=== PATIENT | female | born 1950 | race Caucasian/White ===

== ENCOUNTER 2017-04-13 23:24 | Emergency (ER) | payer BC ==
[~2017-04-13 23:24] MED LIST: ASPIRIN81 M1 PO; CALCIUM + VITAM1 TAB PO; CRESTOR PO; EVISTA60 M1 PO; FLEXI JOINT TAB1 TA1 PO; LORTAB 5/500 TA1 TA1 PO
[2017-04-13] MEDS ORDERED: CRESTOR PO (23:39)
[2017-04-13] MEDS ORDERED: ESTRATEST H.S.1 TAB PO (23:39)
[2017-04-13] MEDS ORDERED: ASPIRIN81 M2 PO (23:39)
== END 2017-04-14 00:41 | disposition home or self-care (01) ==
LOC: SED 23:24
DX: S61.451A Open bite of right hand, initial encounter (principal); Z23 Encounter for immunization; E78.5 Hyperlipidemia, unspecified; Z88.0 Allergy status to penicillin; Z88.2 Allergy status to sulfonamides; Z88.8 Allergy status to other drugs, medicaments and biological substances; W55.01XA Bitten by cat, initial encounter; Y92.009 Unspecified place in unspecified non-institutional (private) residence as the place of occurrence of the external cause
CPT/HCPCS: 90471; 90715; 99283